=== PATIENT | female | born 1990 | race Caucasian/White ===

== ENCOUNTER 2019-08-12 20:01 | Emergency (ER) | payer SELFPAY ==
[~2019-08-12] VITALS: Ht 160 cm; Wt 50.0 kg
[2019-08-12 20:11] VITALS: Ht 160 cm; Wt 50.0 kg
[2019-08-12 20:30] LABS: APPEARANCE HAZY (CLEAR); COLOR YELLOW (YELLOW); NITRITE POSITIVE (NEGATIVE)
[2019-08-12 20:31] LABS: BILIRUBIN NEGATIVE (NEGATIVE); EPITHELIAL CELLS 0-5 /hpf (0-5); GLUCOSE NEGATIVE (NEGATIVE); KETONE NEGATIVE (NEGATIVE); PROTEIN 1+ mg/dL (NEGATIVE); RED CELLS - URINE 0-5 /hpf (0-5); UROBILINOGEN NORMAL (NORMAL); WHITE CELLS - URINE >50 /hpf (NEGATIVE)
[2019-08-12 20:32] LABS: BACTERIA MANY /hpf (NEGATIVE)
[2019-08-12] MEDS ORDERED: MACROBID100 MG PO (23:35)
[2019-08-12] MEDS ORDERED: KEFLEX500 MG PO (23:35)
[2019-08-12 23:45] VITALS: BP 126/73
== END 2019-08-12 23:45 | disposition home or self-care (01) ==
LOC: D.ER 20:01
PROVIDERS: Family Medicine
DX: N39.0 Urinary tract infection, site not specified (principal); R30.0 Dysuria

== ENCOUNTER → 2020-07-06 | Emergency (ER) | payer SELFPAY ==
[~2020-07-06] VITALS: Ht 162.6 cm; Wt 50.0 kg
[~2020-07-06] MED LIST: CLEOCIN HCL300 MG PO; KEFLEX500 MG PO; MACROBID100 MG PO
[2020-07-06 14:39] VITALS: Ht 162.6 cm; Wt 50.0 kg
[2020-07-06 17:05] VITALS: BP 118/69
== END | disposition home or self-care (01) ==
LOC: D.ER 14:36
DX: L03.012 Cellulitis of left finger (principal); I80.9 Phlebitis and thrombophlebitis of unspecified site